=== PATIENT | male | born 1945 | race Caucasian/White ===

== ENCOUNTER 2016-12-29 15:43 | Emergency (ER) | payer MEDICARE ==
[2015-11-24 10:55] VITALS: BP 140/73
[~2016-12-29] VITALS: Ht 180.3 cm; Wt 82.6 kg
[~2016-12-29 15:43] MED LIST: AMLO10TA2 PO; ASPI81TA44 PO; ATOR10TA60 PO; IPRA3AMP NEB; LISI10TA2 PO; PRED-220 PO
--- NOTE | 2016-12-29 16:22 | PHYS DOC ---
Past Medical History Past Medical History: No Pertinent History Past Surgical History: No Surgical History Alcohol Use: None Drug Use: None Adult General Chief Complaint Chief Complaint: CPR/FULL ARREST HPI HPI 71-year-old male presenting to the emergency department today by EMS for cardiac arrest. Reportedly this was a witnessed arrest. Down time started at 1507. CPR initiated immediately. Upon EMS arrival patient was in V. fib and shocked twice which degenerated into asystole. Prior to arrival epinephrine given 4 doses by EMS. No Rosc. Patient was not intubated. Supraglottic device used. Onset today. Location generalized. Duration constant. No alleviating factors. Review of systems, past medical history, allergy list, and social history unable to be obtained on initial presentation due to patient's undergoing currently CPR. ED course: 71-year-old male presenting to the emergency department in cardiac arrest. Patient was transferred over to the [facility] and CPR continued. 1 L normal saline initiated. IV in the left before meals established. Pulse check performed showing asystole. Epinephrine given. Endotracheal intubation performed. Patient's son came during the cardiac arrest. I was able to obtain further clarification of the patient's goals of care. Apparently the patient has cancer of the kidneys and lungs. He reportedly does not want to be on a ventilator and after discussing with son patient's current condition it became clear that the patient would not desire to continue with resuscitation based on conversation with son. At that point in time it was decided to order the patient 's wishes and to call time of at 1550 at which pulse check was performed which showed asystole. Pupils are equal and nonreactive. In addition to the patients desires, poor prognosis given no return of spontaneous circulation after 40 minutes of CPR. Review of Systems Review of Systems See above Allergies Allergies Allergies Coded Allergies Type Severity Reaction Last Updated Verified No Known Drug Allergies 11/22/15 No Physical Exam Physical Exam Constitutional: The patient is unresponsive and undergoing CPR currently. HEENT: Atraumatic head normal external ears, no stridor or neck masses present. Eyes: Pupils are equal and not reactive to light. Conjunctiva normal Neck: Nontender to palpation, no crepitus, no masses or stridor present Cardiovascular: Palpable pulse with CPR, no pulse without CPR. Lungs: Bilateral breath sounds present on bagging Abdomen: Abdomen is soft nondistended and without rebound tenderness or guarding. Skin: Patient has greater than 4 second cap refill, mottling present Extremities: Atraumatic without any obvious deformities Psychologic: Does not make eye contact. EKG EKG [] Radiology/Procedures Radiology/Procedures [] Course & Med Decision Making Course & Med Decision Making Pertinent Labs and Imaging studies reviewed. (See chart for details) [] Dragon Disclaimer Dragon Disclaimer This electronic medical record was generated, in whole or in part, using a voice recognition dictation system. Departure Departure Impression: Primary Impression: Cardiac arrest Additional Impression: Disposition: 20 Condition: Referrals: NO PCP (PCP) Intubation Procedure Intubation Procedure Intub Indication: Respiratory failure Consent: Unable to give consent due to emergent nature. Medications Used: see nursing note Procedure: The patient was placed in the appropriate position. Intubation was performed using direct laryngoscopy. 7-1/2 cm endotracheal tube used. Endotracheal tube used at 24 cm at the teeth. Initial confirmation of placement included bilateral breath sounds, tube fogging, adequate chest rise, adequate pulse oximetry reading. The patient tolerated the procedure well. Complications: none. Problem Qualifiers WINNIE BERGER MD Dec 29, 2016 16:22
[2016-12-29 19:20] LABS: POTASSIUM ISTAT 5.6 mmol/L (3.5-5.0)
== END 2016-12-29 19:11 | disposition expired ==
LOC: ER 15:43
DX: I46.9 Cardiac arrest, cause unspecified (principal)
CPT/HCPCS: 31500; 80047; 82962; 92950